=== PATIENT | female | born 1990 ===

== ENCOUNTER 2016-02-15 22:41 | Emergency (ER) | payer OTHER ==
[2016-02-15 23:18] LABS: ABSOLUTE NEUTROPHIL COUNT 6.6 K/mm3 (1.8-7.7); BASO % 0.2 % (0.2-1.0); EOS # 0.3 (0.0-0.5); EOS % 2.5 % (0.9-2.9); HEMATOCRIT 39.6 % (37.0-47.0); HEMOGLOBIN 12.6 gm/l (12.0-16.0); IMM NEUT% 0.2 % (0-1); LYMPH # 4.5 (1.0-4.8); LYMPH % 37.1 % (15-45); MEAN CELL VOLUME 84.3 fl (81.0-99.0); MEAN CORPUSCULAR HEMOGLOBIN 26.8 pg (27.0-31.0); MEAN CORPUSCULAR HGB CONC 31.8 g/dl (33.0-37.0); MEAN PLATELET VOLUME 9.4 fl (7.4-10.4); MONO # 0.7 (0.0-0.8); MONO % 5.4 % (4-12); NEUT % 54.6 % (43-75); PLATELET COUNT 330 K/mm3 (130-400)
== END 2016-02-16 00:14 | disposition home or self-care (01) ==
LOC: ED 22:41
DX: N93.8 Other specified abnormal uterine and vaginal bleeding (principal)